=== PATIENT | male | born 1960 | race Caucasian/White ===

== ENCOUNTER 2021-01-29 11:31 | Emergency (ER) | payer OTHER ==
[~2021-01-29] VITALS: Ht 180.3 cm; Wt 74.8 kg
[2021-01-29] MEDS ORDERED: NORCO 10-325 T1 EACH PO (12:00)
[2021-01-29] MEDS ORDERED: ZOCOR 20 MG TAB20 M1 PO (12:01)
[2021-01-29 13:25] VITALS: BP 117/69
== END 2021-01-29 13:30 | disposition home or self-care (01) ==
LOC: ER 11:31
DX: S70.02XA Contusion of left hip, initial encounter (principal); S20.212A Contusion of left front wall of thorax, initial encounter; Z79.891 Long term (current) use of opiate analgesic; Z79.899 Other long term (current) drug therapy; W11.XXXA Fall on and from ladder, initial encounter; Y93.89 Activity, other specified; Y92.89 Other specified places as the place of occurrence of the external cause; Y99.8 Other external cause status

== ENCOUNTER 2021-04-21 04:44 | Emergency (ER) | payer OTHER ==
[~2021-04-21] VITALS: Ht 180.3 cm; Wt 74.8 kg
[~2021-04-21 04:44] MED LIST: NORCO 10-325 T1 EACH PO; ZOCOR 20 MG TAB20 M1 PO
[2021-04-21 05:21] LABS: ABSOLUTE NEUTROPHILS 8.3 thou/uL (1.4-8.2); BASOPHILS 0.3 % (0.0-2.0); EOSINOPHILS 0.5 % (0.0-3.0); HEMATOCRIT 43.6 % (42.0-52.0); LYMPHOCYTES 12.5 % (24.0-44.0); MCH 30.7 pg (26.0-34.0); MCHC 34.4 g/dL (28.0-37.0); MCV 89.3 fL (80.0-100.0); MONOCYTES 10.8 % (1.0-8.0); PLATELET COUNT 244 thou/uL (150-400); POLYS 75.9 % (36.0-66.0); RBC 4.89 mil/uL (4.50-6.00); RDW 13.4 % (10.5-14.5); WBC 10.9 thou/uL (4.0-11.0)
[2021-04-21 05:25] LABS: CALCIUM 8.7 mg/dL (8.5-10.1); CREATININE 1.1 mg/dL (0.7-1.3); POTASSIUM 4.4 mmol/L (3.5-5.1)
[2021-04-21 05:31] LABS: TOTAL BILIRUBIN 0.9 mg/dL (0.2-1.0); TOTAL PROTEIN 7.5 g/dL (6.4-8.2)
[2021-04-21 07:13] LABS: URINE BILIRUBIN NEGATIVE (Negative); URINE BLOOD NEGATIVE (Negative); URINE CLARITY CLEAR; URINE COLOR YELLOW; URINE GLUCOSE-RANDOM* NEGATIVE (Negative); URINE KETONES NEGATIVE (Negative); URINE LEUKOCYTES-REFLEX NEGATIVE (Negative); URINE NITRITE-REFLEX NEGATIVE (Negative); URINE PROTEIN (DIPSTICK) NEGATIVE (Negative); URINE UROBILINOGEN 0.2 E.U./dl (0.2-1.0)
[2021-04-21] MEDS ORDERED: ZOFRAN ODT4 MG PO (07:26)
[2021-04-21] MEDS ORDERED: COLACE100 MG PO (07:26)
[2021-04-21] MEDS ORDERED: NORCO7.5 PO (07:26)
[2021-04-21] MEDS ORDERED: METRONIDAZOLE500 M4 PO (07:26)
[2021-04-21] MEDS ORDERED: LEVOFLOXACIN750 MG PO (07:26)
[2021-04-21 07:50] VITALS: BP 133/69
== END 2021-04-21 07:50 | disposition home or self-care (01) ==
LOC: ER 04:44
PROVIDERS: Emergency Medicine
DX: K57.32 Diverticulitis of large intestine without perforation or abscess without bleeding (principal); R10.32 Left lower quadrant pain